=== PATIENT | male | born 1960 | race Caucasian/White ===

== ENCOUNTER 2022-01-25 10:22 | Day surgery (SDC) | payer OTHER ==
[~2022-01-25 10:22] MED LIST: Lactated Ringers 1,000 ML IV SCH; Sodium Chloride 0.9% 10 ML Syringe FLUSH PRN
[2022-01-25] MEDS ORDERED: fentaNYL 100 MCG/2 ML SDV ONE (12:10)
[2022-01-25] MEDS ORDERED: Propofol 200 MG/20 ML SDV ONE ×2 (12:10→12:18)
== END 2022-01-25 13:36 | disposition home or self-care (01) ==
LOC: VM.SDS 10:22
PROVIDERS: ATTEND Surgery
DX: Z12.11 Encounter for screening for malignant neoplasm of colon (principal); K63.5 Polyp of colon; F17.210 Nicotine dependence, cigarettes, uncomplicated; Z98.890 Other specified postprocedural states; Z96.643 Presence of artificial hip joint, bilateral; Z79.82 Long term (current) use of aspirin; Z79.899 Other long term (current) drug therapy; Z87.39 Personal history of other diseases of the musculoskeletal system and connective tissue; Z83.71 Family history of colonic polyps
CPT/HCPCS: 00812; J2704; J3010; J7120